=== PATIENT | female | born 1945 ===

== ENCOUNTER 2018-03-02 09:45 | Inpatient (IN) | payer OTHER ==
[~2018-03-02] VITALS: Ht 152.4 cm; Wt 64.0 kg
[2018-03-09] MEDS ORDERED: PANADOL EXTRA500 MG PO (11:08)
[2018-03-09] MEDS ORDERED: SIMVASTATIN40 MG PO (11:08)
[2018-03-09] MEDS ORDERED: LYRICA50 MG PO (11:09)
== END 2018-03-13 11:32 | disposition home or self-care (01) | DRG 460 ==
LOC: EDUNIT# 09:45 → O/R 03-12 05:25 → PED 03-12 17:45
PROVIDERS: Orthopaedic Surgery
PROC: 00NY0ZZ Release Lumbar Spinal Cord, Open Approach (ICD-10-PCS; 2018-03-12)
PROC: 0ST40ZZ Resection of Lumbosacral Disc, Open Approach (ICD-10-PCS; 2018-03-12)
PROC: 0SG30AJ Fusion of Lumbosacral Joint with Interbody Fusion Device, Posterior Approach, Anterior Column, Open Approach (ICD-10-PCS; principal; 2018-03-12 07:00)
DX: M48.07 Spinal stenosis, lumbosacral region (principal); M51.17 Intervertebral disc disorders with radiculopathy, lumbosacral region; M47.27 Other spondylosis with radiculopathy, lumbosacral region; M43.17 Spondylolisthesis, lumbosacral region; N18.2 Chronic kidney disease, stage 2 (mild); E78.00 Pure hypercholesterolemia, unspecified

== ENCOUNTER → 2018-03-02 12:48 | Outpatient (CLI) | payer OTHER | END | disposition home or self-care (01) | LOC: LAB 12:48 | DX: M48.07 Spinal stenosis, lumbosacral region (principal) ==